=== PATIENT | male | born 1995 | race Caucasian/White ===

== ENCOUNTER 2021-05-01 13:46 | Emergency (ER) | payer SELFPAY ==
[~2021-05-01] VITALS: Ht 175.3 cm; Wt 73.0 kg
[2021-05-01] MEDS ORDERED: SODIUM CHLORIDE 0.9% 1,000 ML IV ONE (14:00)
[2021-05-01 14:21] LABS: BASOPHILS % 0.2 % (0.0-2.0); EOSINOPHILS % 0.1 % (0.0-5.0); HEMATOCRIT. 34.8 % (42.0-52.0); HEMOGLOBIN. 11.9 g/dL (14.0-18.0); LYMPHOCYTES % 14.7 % (20.0-50.0); MEAN CORPUSCULAR HEMOGLOBIN 27.6 pg (28.0-32.0); MEAN CORPUSCULAR VOLUME 80.6 fL (80.0-94.0); MEAN PLATELET VOLUME 7.3 fl (7.4-10.4); MONOCYTES % 6.5 % (2.0-8.0); NEUTROPHILS % 78.5 % (40.0-76.0); PLATELET 349 x1000/uL (130-400); RED BLOOD CELL COUNT 4.32 mill/uL (4.7-6.1); RED CELL DISTRIBUTION WIDTH 13.3 % (11.6-14.6)
[2021-05-01 14:28] LABS: CHLORIDE 104 mEq/L (98-107)
[2021-05-01 14:32] LABS: ETHANOL BLOOD < 10 mg/dL
[2021-05-01 15:00] VITALS: BP 145/60
== END 2021-05-01 15:00 | disposition left against medical advice (07) ==
LOC: ER 13:46
DX: T40.601A Poisoning by unspecified narcotics, accidental (unintentional), initial encounter (principal); I25.2 Old myocardial infarction; I49.9 Cardiac arrhythmia, unspecified; Y92.9 Unspecified place or not applicable
CPT/HCPCS: 36415; 80053; 80307; 80320; 80329; 85025; 93005; 99284; J7030; G0480